=== PATIENT | male | born 1965 | race African-American/Black ===

== ENCOUNTER → 2018-10-11 | Day surgery (SDC) | payer OTHER ==
[~2018-10-11] MED LIST: ACETAMINOPHEN 1000 MG/100 ML IV ONE; AMLODIPINE BESYL5 MG PO; BENICAR40 MG PO; BUPIVACAINE HCL 0.5% 10ML MPF VIAL INJ ONE; CEFAZOLIN SOD 2 GM/D5W 50ML 50 ML IV ONE; DEXAMETHASONE SOD PHOS INJ 4 MG/ML VIAL ONE; FAMOTIDINE20 MG PO; FENTANYL CITRATE/PF 100MCG/2 ML INJ ONE; ISOSORBIDE DINI40 MG PO; LIDOCAINE HCL 2% LOCAL INJ 5 ML SDV VIAL INJ ONE; METOPROLOL SUCC25 MG PO; MIDAZOLAM HCL 2 MG/2 ML VIAL ONE; MUPIROCIN 2% OINT 22 GM TUBE ONE; ONDANSETRON HCL INJ 2 MG/ML VIAL ONE; PROPOFOL IV EMULSION 10 MG/ML 20 ML VIAL ONE; SEVOFLURANE INHAL SOLN 250 ML PEN BTL ONE
--- OUTSIDE RECORDS SUMMARY | 2018-10-11 05:25 | XMS REPORT ---
Author Author Sanjuana Hernandez [facility] eClinicalWorks Address Unknown Phone Unavailable Care Team Providers Care Hydraulic Spinner Name Role Phone Sanjuana Hernandez CP Unavailable Allergies, Adverse Reactions, Alerts Substance Reaction Event Type N.K.D.A. Info Not Available Non Drug Allergy Problems Problem Type Condition Code Onset Dates Condition Status Assessment Family history of ischemic heart disease and other diseases of the circulatory system Z82.49 Active Assessment Chest pain, unspecified R07.9 Active Assessment Bruit R09.89 Active Problem Chest pain, unspecified R07.9 Active Problem CAD without angina I25.10 Active Problem Angina pectoris, unspecified I20.9 Active Problem PCI status Z98.61 Active Assessment CAD without angina I25.10 Active Problem Hypertensive heart disease without heart failure I11.9 Active Problem Old myocardial infarction I25.2 Active Assessment Angina pectoris, unspecified I20.9 Active Assessment PCI status Z98.61 Active Assessment Old myocardial infarction I25.2 Active Assessment Hypertensive heart disease without heart failure I11.9 Active Medications Medication Code System Code Instructions Start Date End Date Status Dosage Toprol XL [facility] [address]-57 25 MG Orally Once a day Jun 23, 2016 Active 1 tablet Amlodipine Besylate [facility] [address]-96 5 MG Orally Once a day Active 1 tablet Atorvastatin Calcium [facility] [address]-83 40 MG Orally Once a day Active 1 tablet Aspirin [facility] [address]-64 325 MG Orally Once a day Inactive 1 tablet Aspirin [facility] [address]-81 81 MG Orally Once a day Oct 05, 2016 Active 1 tablet Benicar [facility] [address]-33 40 MG Orally Once a day Aug 08, 2016 Active 1 tablet Clopidogrel Bisulfate [facility] [address]-36 75 MG Orally Once a day Active 1 tablet Vital Signs Date/Time: Oct 05, 2016 BMI 26.72 Index Weight 197 lbs Height 6ft 0in in Cardiac Monitoring Heart Rate 88 /min Blood Pressure Diastolic 80 mm Hg Blood Pressure Systolic 140 mm Hg Results No Known Results Summary Purpose eClinicalWorks Submission
--- OUTSIDE RECORDS SUMMARY | 2018-10-11 05:25 | XMS REPORT ---
Author Author Sanjuana Hernandez Organization eClinicalWorks Address Unknown Phone Unavailable Care Team Providers Care Hr Coordinator Name Role Phone Sanjuana Hernandez CP Unavailable [...] Problem Chest pain, unspecified R07.9 Active Problem Hypertensive heart disease without heart failure I11.9 Active Problem Angina pectoris, unspecified I20.9 Active Problem Old myocardial infarction I25.2 Active Assessment CAD without angina I25.10 Active Problem PCI status Z98.61 Active Problem CAD without angina I25.10 Active Assessment Angina pectoris, unspecified I20.9 Active Assessment PCI status Z98.61 Active Assessment Old myocardial infarction I25.2 Active Assessment Hypertensive heart disease without heart failure I11.9 Active Medications Medication Code System Code Instructions Start Date End Date Status Dosage Aspirin [facility] 17072991176 81 MG Orally Once a day Oct 05, 2016 Active 1 tablet Toprol XL ND 91343059348 25 MG Orally Once a day Jun 23, 2016 Active 1 tablet Amlodipine Besylate ND 64403491958 5 MG Orally Once a day Active 1 tablet Atorvastatin Calcium ND 19042091186 40 MG Orally Once a day Active 1 tablet Clopidogrel Bisulfate ND 17023868806 75 MG Orally Once a day Active 1 tablet Metoprolol Succinate ER ND 12673380026 25 MG Orally Once a day Active 1 tablet Benicar ND 16901197148 40 MG Orally Once a day Aug 08, 2016 Active 1 tablet Vital Signs Date/Time: May 07, 2017 BMI 27.26 Index Weight 201 lbs Height 6ft 0in in Cardiac Monitoring Heart Rate 85 /min Blood Pressure Diastolic 80 mm Hg Blood Pressure Systolic 135 mm Hg Results No Known Results Summary Purpose eClinicalWorks Submission
--- OUTSIDE RECORDS SUMMARY | 2018-10-11 05:25 | XMS REPORT ---
Author Author Sanjuana Hernandez [facility] eClinicalWorks Address Unknown Phone Unavailable Care Team Providers Care Cash Register Operator Name Role Phone Sanjuana Hernandez CP Unavailable [...] Instructions Start Date End Date Status Dosage Atorvastatin Calcium [facility] [address]-13 40 MG Orally Once a day Active 1 tablet Metoprolol Succinate ER [facility] [address]-16 25 MG Orally Once a day Active 1 tablet Amlodipine Besylate [facility] [address]-51 5 MG Orally Once a day Active 1 tablet Aspirin [facility] [address]-61 81 MG Orally Once a day Oct 05, 2016 Active 1 tablet Clopidogrel Bisulfate [facility] [address]-41 75 MG Orally Once a day Active 1 tablet Toprol XL [facility] [address]-92 25 MG Orally Once a day Jun 23, 2016 Active 1 tablet Benicar [facility] [address]-02 40 MG Orally Once a day Aug 08, 2016 Active 1 tablet Vital Signs Date/Time: January 04, 2017 BMI 25.77 Index Weight 190 lbs Height 6ft in Cardiac Monitoring Heart Rate 80 /min Blood Pressure Diastolic 70 mm Hg Blood Pressure Systolic 140 mm Hg Results No Known Results Summary Purpose eClinicalWorks Submission
--- OUTSIDE RECORDS SUMMARY | 2018-10-11 05:25 | XMS REPORT | Continuity of Care Document ---
Author Author [facility] Interface Address Unknown Phone Unavailable Problems Problem Status Onset Date Classification Date Reported Comments Source Chest pain, unspecified Active Problem 09/21/2018 Radames Thibodeaux MD, [place] Hypertensive heart disease without heart failure Active Problem 09/21/2018 Radames Thibodeaux MD, [place] Angina pectoris, unspecified Active Problem 09/21/2018 Radames Th[place]ode[place], [place] Old myocardial infarction Active Problem 09/21/2018 Radames Thibodeaux MD, [place] PCI status Active Problem 09/21/2018 Radames Thibodeaux MD, [place] CAD without angina Active Diagnosis 09/21/2018 Radames Thibodeaux MD, [place] Family history of ischemic heart disease and other diseases of the circulatory system Active Diagnosis 09/13/2018 Radames Thibodeaux MD, [place] Bruit Active Diagnosis 08/04/2017 Radames Thibodeaux MD, [place] Medications Medication Details Route Status Patient Instructions Ordering Provider Order Date Source Metoprolol Succinate ER 1 tablet Orally Active 25 MG Orally Once a day 12/21/2017 Radames Thibodeaux MD, [place] Metoprolol Succinate ER 1 tablet Orally Active 50 mg Orally Once a day 12/21/2017 Radames Thibodeaux MD, [place] Metoprolol Succinate as directed Orally Active 50 mg Orally daily 12/11/2017 Radames Thibodeaux MD, [place] Aspirin 1 tablet Orally Active 81 MG Orally Once a day 10/05/2016 Radames Thibodeaux MD, [place] Aspirin 1 tablet Orally Active 81 MG Orally Once a day 10/05/2016 Radames Thibodeaux MD, [place] Benicar 1 tablet Orally Active 40 MG Orally Once a day 08/08/2016 Radames Thibodeaux MD, [place] Benicar 1 tablet Orally Active 40 mg Orally Once a day 08/08/2016 Radames Thibodeaux MD, [place] Toprol XL 1 tablet Orally Active 25 MG Orally Once a day 2016 Radames Thibodeaux MD, [place] Toprol XL 1 tablet Orally Active 25 MG Orally Once a day Sc 06/23/2016 Radames Thibodeaux MD, [place] Benicar as directed Orally No Longer Active 20 mg Orally daily 06/23/2016 Radames Thibodeaux MD, [place] Isosorbide Mononitrate CR TAKE 1 TABLET BY MOUTH IN THE MORNING NA Active 60 MG Mary Thibodeaux MD, [place] Amlodipine Besylate 1 tablet Orally Active 5 MG Orally Once a day Mary Thibodeaux MD, [place] Atorvastatin Calcium 1 tablet Orally Active 40 MG Orally Once a day Mary Thibodeaux MD, [place] Aspirin 1 tablet Orally Active 325 MG Orally Once a day Mary Thibodeaux MD, [place] Clopidogrel Bisulfate 1 tablet Orally Active 75 MG Orally Once a day Mary Thibodeaux MD, [place] Atorvastatin Calcium 1 tablet Orally Active 40 MG Orally Once a day Mary Thibodeaux MD, [place] Isosorbide Mononitrate CR 1 tablet in the morning Orally Active 60 MG Orally Once a day Mary Thibodeaux MD, PA Pepcid 1 tablet at bedtime Orally Active 20 mg Orally Once a day Mary Thibodeaux MD, [place] Clopidogrel Bisulfate 1 tablet Orally Active 75 mg Orally Once a day Mary Thibodeaux MD, [place] Amlodipine Besylate 1 tablet Orally Active 5 MG Orally Once a day Mary Thibodeaux MD, [place] Metoprolol Succinate ER 1 tablet Orally Active 25 MG Orally Once a day Mary Thibodeaux MD, [place] Metoprolol Succinate ER 1 tablet Orally Active 25 MG Orally Once a day Mary Thibodeaux MD, [place] Metoprolol Succinate ER TAKE 1 TABLET BY MOUTH EVERY DAY NA Active 25 MG Mary Thibodeaux MD, [place] Famotidine 1 tablet at bedtime Orally Active 20 MG Orally Once a day Mary Thibodeaux MD, [place] Olmesartan Medoxomil 1 tablet Orally Active 40 MG Orally Once a day Al-Azzeh Radames Tayyan, MD, [place] Atorvastatin Calcium 1 tablet Orally Active 40 mg Orally Once a day Mary Thibodeaux MD, [place] Allergies, Adverse Reactions, Alerts Substance Category Reaction Severity Reaction type Status Date Reported Comments Source N.K.D.A. Adverse Reaction Info Not Available Adverse Reaction Active 06/24/2018 Radames Thibodeaux MD, [place] Immunizations Immunization Date Given Site Status Last Updated Comments Source Results Order Name Results Value Reference Range Date Interpretation Comments Source Vital Signs Vital Sign Value Date Comments Source Weight 210 06/24/2018 Radames Thibodeaux MD, [place] Heart Rate 79 06/24/2018 Radames Thibodeaux MD, [place] Diastolic (mm Hg) 65 06/24/2018 Radames Thibodeaux MD, [place] Systolic (mm Hg) 136 06/24/2018 Radames Thibodeaux MD, [place] Weight 205 02/07/2018 Radames Thibodeaux MD, [place] Heart Rate 87 02/07/2018 Radames Thibodeaux MD, [place] Diastolic (mm Hg) 90 02/07/2018 Radames Thibodeaux MD, [place] Systolic (mm Hg) 148 02/07/2018 Radames Thibodeaux MD, [place] Weight 205 12/11/2017 Radames Thibodeaux MD, [place] Heart Rate 84 12/11/2017 Radames Thibodeaux MD, [place] Diastolic (mm Hg) 80 12/11/2017 Radames Thibodeaux MD, [place] Systolic (mm Hg) 140 12/11/2017 Radames Thibodeaux MD, [place] Weight 201 05/07/2017 Radames Thibodeaux MD, [place] Heart Rate 85 05/07/2017 Radames Thibodeaux MD, [place] Diastolic (mm Hg) 80 05/07/2017 Radames Thibodeaux MD, [place] Systolic (mm Hg) 135 05/07/2017 Radames Thibodeaux MD, [place] Weight 190 01/04/2017 Radames Thibodeaux MD, [place] Heart Rate 80 01/04/2017 Radames Thibodeaux MD, [place] Diastolic (mm Hg) 70 01/04/2017 Radames Thibodeaux MD, [place] Systolic (mm Hg) 140 01/04/2017 Radames Thibodeaux MD, [place] Weight 197 10/05/2016 Radames Thibodeaux MD, [place] Heart Rate 88 10/05/2016 Radames Thibodeaux MD, [place] Diastolic (mm Hg) 80 10/05/2016 Radames Thibodeaux MD, [place] Systolic (mm Hg) 140 10/05/2016 Radames Thibodeaux MD, PA Weight 205 08/08/2016 Radames Thibodeaux MD, [place] Heart Rate 77 08/08/2016 Radames Thibodeaux MD, [place] Diastolic (mm Hg) 112 08/08/2016 Radames Thibodeaux MD, PA Systolic (mm Hg) 157 08/08/2016 Radames Thibodeaux MD, PA Weight 202 06/23/2016 Radames Thibodeaux MD, [place] Heart Rate 83 06/23/2016 Radames Thibodeaux MD, [place] Diastolic (mm Hg) 100 06/23/2016 Radames Thibodeaux MD, PA Systolic (mm Hg) 165 06/23/2016 Radames Thibodeaux MD, PA Encounters Location Location Details Encounter Type Encounter Number Reason For Visit Attending Provider ADM Date DC Date Status Source Radames Thibodeaux MD, [place] Unknown [id number] 06/23/2016 06/23/2016 Radames Thibodeaux MD, [place] Radames Thibodeaux MD, [place] Unknown [id number] 06/23/2016 06/23/2016 Radames Thibodeaux MD, PA Radames Thibodeaux MD, PA carotid & arterial dopplers [id number] 08/01/2016 08/01/2016 Radames Thibodeaux MD, [place] Radames Thibodeaux MD, PA carotid & arterial dopplers [id number] 08/01/2016 08/01/2016 Radames Thibodeaux MD, PA Radames Thibodeaux MD, PA carotid & arterial dopplers [id number] 08/01/2016 08/01/2016 Radames Thibodeaux MD, [place] Radames Thibodeaux MD, PA Follow-Up [id number] 08/08/2016 08/08/2016 Radames Thibodeaux MD, PA Procedures Procedure Code Date Perfomer Comments Source
--- OUTSIDE RECORDS SUMMARY | 2018-10-11 05:26 | XMS REPORT ---
Author Author Sanjuana Hernandez Organization eClinicalWorks Address Unknown Phone Unavailable Care Team Providers Care Integration Consultant Name Role Phone Sanjuana Hernandez CP Unavailable Allergies No Known Allergies Problems Problem Type Condition Code Onset Dates Condition Status Problem Chest pain, unspecified R07.9 Active Problem Hypertensive heart disease without heart failure I11.9 Active Problem Angina pectoris, unspecified I20.9 Active Problem Old myocardial infarction I25.2 Active Problem PCI status Z98.61 Active Problem CAD without angina I25.10 Active Medications No Known Medications Results No Known Results Summary Purpose eClinicalWorks Submission
--- OUTSIDE RECORDS SUMMARY | 2018-10-11 05:26 | XMS REPORT ---
Author Author Sanjuana Hernandez Organization eClinicalWorks Address Unknown Phone Unavailable Care Team Providers Care Director Systems Name Role Phone Sanjuana Hernandez CP Unavailable Allergies, Adverse Reactions, Alerts Substance Reaction Event Type N.K.D.A. Info Not Available Non Drug Allergy Encounters Encounter Location Date carotid & arterial dopplers Radames Thibodeaux MD, [place] Aug 01, 2016 Unknown Radames Thibodeaux [place], [place] Jun 23, 2016 Problems Problem Type Condition ICD-9 Code Onset Dates Condition Status Assessment PCI status Z98.61 Active Assessment Hypertensive heart disease without heart failure I11.9 Active Assessment Old myocardial infarction I25.2 Active Problem Hypertensive heart disease without heart failure I11.9 Active Problem Old myocardial infarction I25.2 Active Problem CAD without angina I25.10 Active Assessment Bruit R09.89 Active Assessment Family history of ischemic heart disease and other diseases of the circulatory system Z82.49 Active Problem PCI status Z98.61 Active Assessment CAD without angina I25.10 Active Medications Medication Code System Code Instructions Start Date End Date Status Dosage Amlodipine Besylate [facility] [address]-40 5 MG Orally Once a day Active 1 tablet Atorvastatin Calcium [facility] [address]-39 40 mg Orally Once a day Active 1 tablet Clopidogrel Bisulfate [facility] [address]-04 75 mg Orally Once a day Active 1 tablet Benicar [facility] [address]-01 20 mg Orally daily Jun 23, 2016 Active as directed Aspirin [facility] [address]-48 325 MG Orally Once a day Active 1 tablet Toprol XL [facility] [address]-29 25 MG Orally Once a day Jun 23, 2016 Active 1 tablet Social History Social History Element Qualifiers Date Reported Do you drink alcohol? . Status: No Jun 23, 2016 Vital Signs Date/Time: Jun 23, 2016 Weight 202 lbs Cardiac Monitoring Heart Rate 83 /min Blood Pressure Diastolic 100 mm Hg Blood Pressure Systolic 165 mm Hg Summary Purpose eClinicalWorks Submission
--- OUTSIDE RECORDS SUMMARY | 2018-10-11 05:26 | XMS REPORT ---
Author Author Sanjuana Hernandez Organization eClinicalWorks Address Unknown Phone Unavailable Care Team Providers Care Interlibrary Loan Specialist Name Role Phone Sanjuana Hernandez CP Unavailable Encounters Encounter Location Date carotid & arterial dopplers Radames Thibodeaux [place], [place] Aug 01, 2016 Summary Purpose eClinicalWorks Submission
--- OUTSIDE RECORDS SUMMARY | 2018-10-11 05:26 | XMS REPORT ---
Author Author Sanjuana Hernandez [facility] eClinicalWorks Address Unknown Phone Unavailable Care Team Providers Care Standpipe Tender Name Role Phone Sanjuana Hernandez CP Unavailable Allergies, Adverse Reactions, Alerts Substance Reaction Event Type N.K.D.A. Info Not Available Non Drug Allergy Problems Problem Type Condition Code Onset Dates Condition Status Assessment Hypertensive heart disease without heart failure I11.9 Active Assessment Chest pain, unspecified R07.9 Active Assessment Family history of ischemic heart disease and other diseases of the circulatory system Z82.49 Active Assessment PCI status Z98.61 Active Assessment Old myocardial infarction I25.2 Active Problem Chest pain, unspecified R07.9 Active Problem Hypertensive heart disease without heart failure I11.9 Active Problem Angina pectoris, unspecified I20.9 Active Problem Old myocardial infarction I25.2 Active Assessment CAD without angina I25.10 Active Problem PCI status Z98.61 Active Problem CAD without angina I25.10 Active Medications Medication Code System Code Instructions Start Date End Date Status Dosage Atorvastatin Calcium ND 84965375294 40 MG Orally Once a day Active 1 tablet Aspirin ND 03177341705 81 MG Orally Once a day Oct 05, 2016 Active 1 tablet Metoprolol Succinate ER ND 57667451337 25 MG Orally Once a day Inactive 1 tablet Metoprolol Succinate NDC 0 50 mg Orally daily Dec 11, 2017 Dec 06, 2018 Active as directed Clopidogrel Bisulfate ND 08490606440 75 MG Orally Once a day Active 1 tablet Amlodipine Besylate ND 47440498017 5 MG Orally Once a day Active 1 tablet Toprol XL ND 28765147833 25 MG Orally Once a day Jun 23, 2016 Active 1 tablet Benicar ND 72891304784 40 MG Orally Once a day Aug 08, 2016 Active 1 tablet Vital Signs Date/Time: Dec 11, 2017 BMI 27.80 Index Weight 205 lbs Height 6ft 0in in Cardiac Monitoring Heart Rate 84 /min Blood Pressure Diastolic 80 mm Hg Blood Pressure Systolic 140 mm Hg Results No Known Results Summary Purpose eClinicalWorks Submission
--- OUTSIDE RECORDS SUMMARY | 2018-10-11 05:26 | XMS REPORT ---
Author Author [facility] Address Unknown Phone Unavailable Care Team Providers Care Elementary [employer] Reading Teacher Name Role Phone Unavailable Unavailable Problems This patient has no known problems. Allergies, Adverse Reactions, Alerts This patient has no known allergies or adverse reactions. Medications This patient has no known medications.
--- OUTSIDE RECORDS SUMMARY | 2018-10-11 05:26 | XMS REPORT ---
Author Author Sanjuana Hernandez Organization eClinicalWorks Address Unknown Phone Unavailable Care Team Providers Care Wireless Field Technician Name Role Phone Sanjuana Hernandez CP Unavailable [...] Instructions Start Date End Date Status Dosage Metoprolol Succinate NDC 0 50 mg Orally daily Dec 11, 2017 December 21, 2017 Inactive as directed Metoprolol Succinate ER NDC 11153432714 25 MG Orally Once a day December 21, 2017 Active 1 tablet Results No Known Results Summary Purpose eClinicalWorks Submission
--- OUTSIDE RECORDS SUMMARY | 2018-10-11 05:26 | XMS REPORT ---
Author Author Sanjuana Hernandez [facility] eClinicalWorks Address Unknown Phone Unavailable Care Team Providers Care Upholsterer [employer] Name Role Phone aSnjuana Hernandez CP Unavailable Allergies, Adverse Reactions, Alerts [...] Date End Date Status Dosage Metoprolol Succinate ER ND 18559928601 50 mg Orally Once a day December 21, 2017 Active 1 tablet Atorvastatin Calcium ND 90035228775 40 MG Orally Once a day Active 1 tablet Aspirin ND 82608006224 81 MG Orally Once a day Oct 05, 2016 Active 1 tablet Isosorbide Mononitrate CR ND 76338979584 60 MG Orally Once a day Active 1 tablet in the morning Pepcid ND 51033520843 20 mg Orally Once a day Active 1 tablet at bedtime Clopidogrel Bisulfate ND 77370347183 75 MG Orally Once a day Active 1 tablet Amlodipine Besylate ND 65092842445 5 MG Orally Once a day Active 1 tablet Toprol XL ND 78244427617 25 MG Orally Once a day Jun 23, 2016 Active 1 tablet Benicar [facility] 61942779771 40 MG Orally Once a day Aug 08, 2016 Active 1 tablet Vital Signs Date/Time: February 07, 2018 BMI 27.80 Index Weight 205 lbs Height 6ft 0in in Cardiac Monitoring Heart Rate 87 /min Blood Pressure Diastolic 90 mm Hg Blood Pressure Systolic 148 mm Hg Results No Known Results Summary Purpose eClinicalWorks Submission
--- OUTSIDE RECORDS SUMMARY | 2018-10-11 05:26 | XMS REPORT ---
Author Author Sanjuana Hernandez [facility] eClinicalWorks Address Unknown Phone Unavailable Care Team Providers Care Custodian Blood Bank Name Role Phone Sanjuana Hernandez CP Unavailable Allergies, Adverse Reactions, Alerts Substance Reaction Event Type N.K.D.A. Info Not Available Non Drug Allergy Encounters Encounter Location Date carotid & arterial dopplers Radames Thibodeaux MD, [place] Aug 01, 2016 Unknown Radames Thibodeaux MD, [place] Jun 23, 2016 Follow-Up Radames Thibodeaux MD, [place] Aug 08, 2016 Problems Problem Type Condition ICD-9 Code Onset Dates Condition Status Assessment Family history of ischemic heart disease and other diseases of the circulatory system Z82.49 Active Assessment CAD without angina I25.10 Active Assessment Bruit R09.89 Active Problem Chest pain, unspecified R07.9 Active Problem CAD without angina I25.10 Active Problem Angina pectoris, unspecified I20.9 Active Problem PCI status Z98.61 Active Assessment Chest pain, unspecified R07.9 Active Problem Hypertensive heart disease without heart failure I11.9 Active Problem Old myocardial infarction I25.2 Active Assessment Angina pectoris, unspecified I20.9 Active Assessment PCI status Z98.61 Active Assessment Old myocardial infarction I25.2 Active Assessment Hypertensive heart disease without heart failure I11.9 Active Medications Medication Code System Code Instructions Start Date End Date Status Dosage Atorvastatin Calcium [facility] [address]-37 40 mg Orally Once a day Active 1 tablet Clopidogrel Bisulfate [facility] [address]-46 75 mg Orally Once a day Active 1 tablet Aspirin [facility] [address]-85 325 MG Orally Once a day Active 1 tablet Benicar [facility] [address]-12 20 mg Orally daily Jun 23, 2016 Aug 08, 2016 Inactive as directed Benicar [facility] [address]-23 40 MG Orally Once a day Aug 08, 2016 Active 1 tablet Toprol XL [facility] [address]-00 25 MG Orally Once a day Jun 23, 2016 Active 1 tablet Amlodipine Besylate [facility] [address]-31 5 MG Orally Once a day Active 1 tablet Social History Social History Element Qualifiers Date Reported Do you drink alcohol? . Status: No Aug 08, 2016 Vital Signs Date/Time: Aug 08, 2016 Weight 205 lbs Cardiac Monitoring Heart Rate 77 /min Blood Pressure Diastolic 112 mm Hg Blood Pressure Systolic 157 mm Hg Summary Purpose eClinicalWorks Submission
--- OUTSIDE RECORDS SUMMARY | 2018-10-11 05:26 | XMS REPORT ---
Author Author Sanjuana Hernandez Organization eClinicalWorks Address Unknown Phone Unavailable Care Team Providers Care Commercial Sales Director Name Role Phone Sanjuana Hernandez CP Unavailable Allergies No Known Allergies Problems Problem Type Condition Code Onset Dates Condition Status Assessment CAD without angina I25.10 Active Problem Chest pain, unspecified R07.9 Active Problem Hypertensive heart disease without heart failure I11.9 Active Problem Angina pectoris, unspecified I20.9 Active Problem Old myocardial infarction I25.2 Active Problem PCI status Z98.61 Active Problem CAD without angina I25.10 Active Medications Medication Code System Code Instructions Start Date End Date Status Dosage Isosorbide Mononitrate [facility] 49745859013 60 MG Active TAKE 1 TABLET BY MOUTH IN THE MORNING Results No Known Results Summary Purpose eClinicalWorks Submission
--- OUTSIDE RECORDS SUMMARY | 2018-10-11 05:26 | XMS REPORT ---
Author Author Sanjuana Hernandez [facility] eClinicalWorks Address Unknown Phone Unavailable Care Team Providers Care Telecommunications Technician Name Role Phone Sanjuana Hernandez CP Unavailable Allergies, Adverse Reactions, Alerts Substance Reaction Event Type N.K.D.A. Info Not Available Non Drug Allergy Problems Problem Type Condition Code Onset Dates Condition Status Assessment Family history of ischemic heart disease and other diseases of the circulatory system Z82.49 Active Assessment CAD without angina I25.10 Active Assessment Chest pain, unspecified R07.9 Active Assessment PCI status Z98.61 Active Assessment Old myocardial infarction I25.2 Active Assessment Hypertensive heart disease without heart failure I11.9 Active Problem Chest pain, unspecified R07.9 Active Problem Hypertensive heart disease without heart failure I11.9 Active Problem Angina pectoris, unspecified I20.9 Active Problem Old myocardial infarction I25.2 Active Problem PCI status Z98.61 Active Problem CAD without angina I25.10 Active Medications Medication Code System Code Instructions Start Date End Date Status Dosage Metoprolol Succinate ER [facility] 92318933033 25 MG Active TAKE 1 TABLET BY MOUTH EVERY DAY Metoprolol Succinate ER ND 34658508356 50 mg Orally Once a day December 21, 2017 Inactive 1 tablet Toprol XL ND 67765880980 25 MG Orally Once a day Jun 23, 2016 Active 1 tablet Famotidine ND 42646953005 20 MG Orally Once a day Active 1 tablet at bedtime Clopidogrel Bisulfate ND 88093824002 75 mg Orally Once a day Active 1 tablet Isosorbide Mononitrate CR [facility] 88449879956 60 MG Active TAKE 1 TABLET BY MOUTH IN THE MORNING Aspirin ND 39879192204 81 MG Orally Once a day Oct 05, 2016 Active 1 tablet Pepcid ND 06487801647 20 mg Orally Once a day Active 1 tablet at bedtime Benicar [facility] 43355636798 40 mg Orally Once a day Aug 08, 2016 Active 1 tablet Olmesartan Medoxomil ND 07376467057 40 MG Orally Once a day Active 1 tablet Amlodipine Besylate [facility] 01853433250 5 MG Orally Once a day Active 1 tablet Atorvastatin Calcium [facility] 50508492290 40 mg Orally Once a day Active 1 tablet Vital Signs Date/Time: Jun 24, 2018 BMI 28.48 Index Weight 210 lbs Height 6ft 0in in Cardiac Monitoring Heart Rate 79 /min Blood Pressure Diastolic 65 mm Hg Blood Pressure Systolic 136 mm Hg Results No Known Results Summary Purpose eClinicalWorks Submission
[2018-10-11 06:14] LABS: BASOPHILS % 0.5 % (0.0-1.0); EOSINOPHILS # (AUTO) 0.1 (0.0-0.4); EOSINOPHILS % 1.7 % (0.0-6.0); HEMATOCRIT 42.2 % (38.2-49.6); HEMOGLOBIN 14.5 g/dL (14.0-18.0); LYMPHOCYTES # (AUTO) 2.3 (1.0-3.2); MEAN CORPUSCULAR HGB CONC 34.4 g/dL (31-35); MEAN CORPUSCULAR VOLUME 78.6 fL (81-99); MONOCYTES # (AUTO) 0.7 (0.2-0.8); MONOCYTES % 11.4 % (4.4-11.3); NEUTROPHILS # (AUTO) 2.6 (2.1-6.9); NEUTROPHILS % 46.2 % (38.7-80.0); PLATELET COUNT 221 x10e3/uL (140-360); RED BLOOD COUNT 5.37 x10e6/uL (4.3-5.7); RED CELL DISTRIBUTION WIDTH 13.7 % (11.7-14.4)
--- NOTE | 2018-10-11 07:16 | Diagnostic Imaging Report ---
EXAMINATION: CHEST 2 VIEWS COMPARISON: None FINDINGS: TUBES and LINES: None. LUNGS: Lungs are well inflated. Lungs are clear. There is no evidence of pneumonia or pulmonary edema. High density subcentimeter nodular opacity in the left mid lung likely represents calcified granuloma or overlapping vessels. PLEURA: No pleural effusion or pneumothorax. HEART AND MEDIASTINUM: The cardiomediastinal silhouette is unremarkable. BONES AND SOFT TISSUES: No acute osseous lesion. Soft tissues are unremarkable. Mild degenerative changes of the visualized spine. UPPER ABDOMEN: No free air under the diaphragm. IMPRESSION: No acute radiographic abnormality. Signed by: Dr. Leisa Joy MD on 10/11/2018 7:12 AM
--- NOTE | 2018-10-11 08:24 | Operative Report ---
DATE OF PROCEDURE: October 11, 2018 BREAD PANNER: None PREOPERATIVE DIAGNOSES 1. Painful soft tissue mass, 3 cm x 2 cm, distal heel, right foot. 2. Soft tissue mass, 2 x 2 cm, proximal lateral heel, right foot. 3. Left hallux 2 x 2 cm soft tissue mass. 4. Left heel central lateral heel, 4 x 3 cm. POSTOPERATIVE DIAGNOSES 1. Painful soft tissue mass, 3 cm x 2 cm, distal heel, right foot. 2. Soft tissue mass, 2 x 2 cm, proximal lateral heel, right foot. 3. Left hallux 2 x 2 cm soft tissue mass. 4. Left heel central lateral heel, 4 x 3 cm. PROCEDURES 1. Removal of soft tissue mass, right 3 x 2 cm distally. 2. Removal of soft tissue mass, 2 x 2 cm, proximal heel. 3. Left hallux 2 x 2 cm. 4. Removal of soft tissue mass, left heel central lateral, 4 x 3 cm. PATHOLOGY: Specimens sent to pathology. ANESTHESIA: General anesthetic with local block consisting of a total of 15 mL of Marcaine plain. HEMOSTASIS: Pneumatic ankle tourniquet. ESTIMATED BLOOD LOSS: Less than 10 mL. MATERIALS: None. COMPLICATIONS: None. CONDITION: Stable. PROCEDURE IN DETAIL: Under mild sedation, the patient was brought to the operating room and placed in the supine position. Following IV sedation, anesthesia was obtained with general anesthetic. At this point, the right foot was scrubbed, prepped and draped in the usual aseptic manner. It was then lowered to the table after the pneumatic ankle tourniquet was inflated to 350 mmHg. Attention was then directed to the soft tissue mass at the right foot where 2 semi-elliptical incisions were made, 3 x 2 cm and 2 x 2 cm. They were deepened down to the level of the dermis right at the level of the subcutaneous tissue. The mass was removed from the foot. Both of them were passed from the operating table and sent for pathology. The base was then cauterized with electrocautery and a curette leaving only clean viable tissue. Clean dressing was applied consisting of Adaptic, 4 x 4's, Kerlix, and an Conrad bandage. The tourniquet was deflated. There was noted to be hyperemic response to all the digits. Left soft tissue mass removal times 2. Attention was then directed to the left foot where after the foot was cleaned, prepped and draped in the usual aseptic manner, the tourniquet was inflated to 350 mmHg. Two soft tissue masses were removed. The left hallux 2 x 2 cm and the left central lateral heel, 4 x 3 cm were removed all the way down to the level of the subcutaneous tissue. They were passed from the operating table and sent for pathology. At this point, the base was cauterized with electrocautery and curette in order to prevent the masses from returning. A clean dressing was applied consisting of Adaptic, 4 x 4's, Kerlix, and Conrad bandage. The tourniquet was deflated. There was noted to be a response to all the digits. The patient tolerated the procedure well without complications. Was transferred to the recovery room with vital signs stable and vascular status intact to both feet. The patient will be discharged home when he meets criteria. He was given instructions to be partial weightbearing, with the postop shoe and the fracture boot. He is instructed to follow up with me in the office, and to call the office for any questions, concerns or any problems arise. Job#: [id number]
[2018-10-11 08:40] VITALS: BP 127/98
== END | disposition home or self-care (01) ==
LOC: OR 05:23
PROVIDERS: ATTEND Podiatrist Foot & Ankle Surgery
DX: L84 Corns and callosities (principal); I25.10 Atherosclerotic heart disease of native coronary artery without angina pectoris; I10 Essential (primary) hypertension; E78.00 Pure hypercholesterolemia, unspecified; E78.5 Hyperlipidemia, unspecified; F17.210 Nicotine dependence, cigarettes, uncomplicated; Z95.5 Presence of coronary angioplasty implant and graft; Z86.73 Personal history of transient ischemic attack (TIA), and cerebral infarction without residual deficits
CPT/HCPCS: 11422 ×2; 11423; 11424; 36415; 71046; 85025; 88305; J0131; J0690; J1100; J2001; J2250; J2405; J2704; 88304

== ENCOUNTER → 2020-12-24 | Outpatient (CLI) | payer OTHER ==
[~2020-12-24] MED LIST changes: -ACETAMINOPHEN 1000 MG/100 ML IV ONE; -BUPIVACAINE HCL 0.5% 10ML MPF VIAL INJ ONE; -CEFAZOLIN SOD 2 GM/D5W 50ML 50 ML IV ONE; -DEXAMETHASONE SOD PHOS INJ 4 MG/ML VIAL ONE; -FENTANYL CITRATE/PF 100MCG/2 ML INJ ONE; -LIDOCAINE HCL 2% LOCAL INJ 5 ML SDV VIAL INJ ONE; -MIDAZOLAM HCL 2 MG/2 ML VIAL ONE; -MUPIROCIN 2% OINT 22 GM TUBE ONE; -ONDANSETRON HCL INJ 2 MG/ML VIAL ONE; -PROPOFOL IV EMULSION 10 MG/ML 20 ML VIAL ONE; -SEVOFLURANE INHAL SOLN 250 ML PEN BTL ONE
== END ==
LOC: RAD 11:42
PROVIDERS: ATTEND Family Medicine
DX: M54.5 Low back pain (principal)
CPT/HCPCS: 72110